=== PATIENT | male | born 1950 | race African-American/Black ===

== ENCOUNTER → 2016-11-04 | Outpatient (CLI) | payer OTHER ==
[~2016-11-04] MED LIST: ARIXTRA2.5 MG/0.1 SQ; BACTROBAN22 GM TP; CLEOCIN PO; COLACE50 MG PO; COUMADIN7.5 MG PO; DIOVAN HCT 80/11 TAB; DIOVAN HCT 80/11 TAB PO; FERROUS GLUCON324 MG PO; LORTAB 10-5001 EACH; LORTAB 10-5001 EACH PO; LORTAB 10/500 T1 TAB PO; LOVENOX120 MG/0.8 INJ; NO MEDICATIONS; NORCO 10/3251 TAB PO; PEN-VEE K PO; TYLOX 5/500 CAP1 CAP PO; ZESTORETIC 10-1 EACH PO
--- NOTE | ~2016-11-04 | CR170 ---
[facility] A Service [facility] RADIOLOGY TEXT RESULTS PATIENT: JOSEFINA ALLISON LOCATION: [facility] : 48 UNIT #: [id number] AGE: [address]: ANNY ESCALERA SEX: M ORDER DR: [id number] [address] [address] [id number] O MR#: [id number] Acc #: [id number] NAME: JOSEFINA ALLISON : 1950 SEX: M STUDY DATE/TIME: 11/04/2016 11:24 UNIT: [facility] ROOM: STUDY DESCRIPTION: CR Knee 2 Views Rt Attending Physician: Anny Escalera Aprn Referring Physician: Anny Escalera Aprn Ordering Physician: Anny Escalera Aprn Primary Care Physician: Anny Escalera Aprn MEDICAL IMAGING REPORT This report is preliminary unless electronic signature is present EXAM Right knee 2 views 11/04/2016 INDICATIONS 66-year-old male with knee pain for several months. Arthritis. Bilateral knee pain. TECHNIQUE 2 views of the right knee. COMPARISON STUDIES No comparisons. FINDINGS There are tricompartmental degenerative changes, most severe in the medial patellofemoral compartments. There is spurring of the tibial spines. No acute fracture. No joint effusion. IMPRESSION 1. Tricompartmental degenerative changes. No acute fracture. Dictated by... David Boone M.D. THIS IS AN ELECTRONICALLY VERIFIED REPORT David Boone M.D. at 11/04/2016 11:34 PM JACKY/chantel TD: 11/04/2016 22:24 JOB #: [id number] [facility] A Service of [facility] RADIOLOGY TEXT RESULTS PATIENT: JOSEFINA ALLISON LOCATION: [facility] : 48 UNIT #: [id number] AGE: [address]: ANNY ESCALERA SEX: M ORDER DR: MEDICAL IMAGING REPORT Page 1 of 1 COPY
--- NOTE | ~2016-11-04 | CR169 ---
[facility] A Service of [facility] RADIOLOGY TEXT RESULTS PATIENT: JOSEFINA ALLISON LOCATION: [facility] : 48 UNIT #: [id number] AGE: [address]: ANNY ESCALERA SEX: M ORDER DR: [id number] [facility] [address] [facility] [place], [place] [address] [id number] O MR#: [id number] Acc #: [id number] NAME: JOSEFINA ALLISON : 1950 SEX: M STUDY DATE/TIME: 11/04/2016 11:23 UNIT: [facility] ROOM: STUDY DESCRIPTION: CR Knee 2 Views Lt Attending Physician: Anny Escalera Aprn Referring Physician: Anny Escalera Aprn Ordering Physician: Anny Escalera Aprn Primary Care Physician: Anny Escalera Aprn MEDICAL IMAGING REPORT This report is preliminary unless electronic signature is present EXAM Left knee 2 views 11/04/2016 INDICATIONS Pain in both knees. Arthritis. Symptoms for several months. COMPARISON STUDIES No comparisons. FINDINGS There is advanced tricompartmental degenerative change in the medial and patellofemoral compartments and mild degenerative change in the lateral compartment. There is osteophytosis. No acute fracture. Spurring of the tibial spines. No joint effusion. IMPRESSION 1. Tricompartmental degenerative changes but no acute fracture. Dictated by... David Boone M.D. THIS IS AN ELECTRONICALLY VERIFIED REPORT David Boone M.D. at 11/04/2016 11:34 PM JACKY/chantel TD: 11/04/2016 22:23 JOB #: [id number] MEDICAL IMAGING REPORT Page 1 of 1 COPY
--- NOTE | ~2016-11-04 | CR229 ---
[facility] A Service of [facility] RADIOLOGY TEXT RESULTS PATIENT: JOSEFINA ALLISON LOCATION: [facility] : 48 UNIT #: [id number] AGE: [address]: ANNY ESCALERA SEX: M ORDER DR: [id number] [facility] [address] [facility] [place], [place] [address] [id number] O MR#: [id number] Acc #: [id number] NAME: JOSEFINA LALISON : 1950 SEX: M STUDY DATE/TIME: 11/04/2016 11:25 UNIT: [facility] ROOM: STUDY DESCRIPTION: CR Shoulder Min 2 View Lt Attending Physician: Anny Escalera Aprn Referring Physician: Anny Escalera Aprn Ordering Physician: Anny Escalera Aprn Primary Care Physician: Anny Escalera Aprn MEDICAL IMAGING REPORT This report is preliminary unless electronic signature is present EXAM Left shoulder, 11/04/2016. INDICATIONS 66-year-old male with left shoulder pain for several months arthritis. TECHNIQUE Two views of the left shoulder. COMPARISON No comparisons. FINDINGS Bones are osteopenic. There is mild degenerative change of the glenohumeral joint. No acute fracture, shoulder separation or dislocation. IMPRESSION 1. Mild degenerative change of the left shoulder but no acute fracture. Dictated by... David Boone M.D. THIS IS AN ELECTRONICALLY VERIFIED REPORT David Boone M.D. at 11/04/2016 11:34 PM Luiz TD: 11/04/2016 22:34 JOB #: [id number] MEDICAL IMAGING REPORT Page 1 of 1 COPY
--- NOTE | ~2016-11-04 | CR230 ---
[facility] A Service of [facility] RADIOLOGY TEXT RESULTS PATIENT: JOSEFINA ALLISON LOCATION: [facility] : 48 UNIT #: [id number] AGE: [address]: ANNY ESCALERA SEX: M ORDER DR: [id number] [place], [place] [address] [id number] O MR#: [id number] Acc #: [id number] NAME: JOSEFINA ALLISON : 1950 SEX: M STUDY DATE/TIME: 11/04/2016 11:25 UNIT: [facility] ROOM: STUDY DESCRIPTION: CR Shoulder Min 2 View Rt Attending Physician: Anny Escalera Aprn Referring Physician: Anny Escalera Aprn Ordering Physician: Anny Escalera Aprn Primary Care Physician: Anny Escalera Aprn MEDICAL IMAGING REPORT This report is preliminary unless electronic signature is present EXAM Right shoulder 2 views 11/04/2016 INDICATIONS 66-year-old male with right shoulder pain. Arthritis. Pain symptoms for several months. TECHNIQUE 2 views of the right shoulder. COMPARISON STUDIES No comparisons. FINDINGS There is mild degenerative change of the AC joint. No acute fracture. The bones are osteopenic. IMPRESSION 1. Osteopenia and degenerative change, otherwise negative. Dictated by... David Boone M.D. THIS IS AN ELECTRONICALLY VERIFIED REPORT David Boone M.D. at 11/04/2016 11:34 PM JACKY/chantel TD: 11/04/2016 22:35 JOB #: [id number] MEDICAL IMAGING REPORT [facility] A Service of [facility] RADIOLOGY TEXT RESULTS PATIENT: JOSEFINA ALLISON LOCATION: [facility] : 48 UNIT #: [id number] AGE: [address]: ANNY ESCALERA SEX: M ORDER DR: Page 1 of 1 COPY
== END | disposition home or self-care (01) ==
LOC: CRAD 10:56
DX: M25.511 Pain in right shoulder (principal); M25.512 Pain in left shoulder; M25.561 Pain in right knee; M25.562 Pain in left knee; M17.0 Bilateral primary osteoarthritis of knee; M19.012 Primary osteoarthritis, left shoulder; M19.011 Primary osteoarthritis, right shoulder; M85.811 Other specified disorders of bone density and structure, right shoulder
CPT/HCPCS: 73030; 73560